=== PATIENT | female | born 1940 | race Caucasian/White ===

== ENCOUNTER 2020-03-01 15:12 | Emergency (ER) | payer MEDICARE ==
[~2020-03-01] VITALS: Ht 154.9 cm; Wt 50.0 kg
[~2020-03-01 15:12] MED LIST: ADV50250 IH; ALBU18HF2 INH; ASPI81TA52 PO; ATOR10TA87 PO; CALC-729 PO; CHOL500044 PO; CLON-528 PO; CLOP-32 PO; CYAN100019 PO; DES150T PO; LOSA25TA96 PO; MAGN250T11 PO; MULT-1141 PO; TRAM50TA2 PO; VITE1000C PO; ZINC50TA15 PO
--- NOTE | 2020-03-01 15:48 | NUR ---
PT'S DAUGHTER CALLED FOR STATUS UPDATE. INFORMED THAT HER MOTHER WAS WAITING TO BE TRIAGED AT THIS TIME. PT WAS ASKED IF STAFF COULD GIVE HER DAUGHTER FRANCK INFORMATION ON HER VISIT TODAY. PT GAVE PERMISSION FOR ONLY HER DAUGHTER FRANCK TRIPLETT TO RECEIVE STATUS UPDATES WHEN SHE JEZ : PHONE # [phone]
[2020-03-01 16:14] VITALS: BP 153/93
--- NOTE | 2020-03-01 16:40 | NUR ---
provider spoke with daughter and informed her that pt was well with no noted injuries on exam. pt is being discharged home and daughter will be picking her up.
--- NOTE | 2020-03-01 17:00 | NUR ---
pt's daughter called and stated that she was on her way to pick pt up. pt notified that daughter is on her way.
== END 2020-03-01 19:01 | disposition home or self-care (01) ==
LOC: ER 15:13
DX: R53.1 Weakness (principal); R10.9 Unspecified abdominal pain; W18.39XA Other fall on same level, initial encounter; Y93.89 Activity, other specified; Y92.89 Other specified places as the place of occurrence of the external cause; Y99.9 Unspecified external cause status
CPT/HCPCS: 99284